=== PATIENT | female | born 1980 | race Caucasian/White ===

== ENCOUNTER 2022-05-12 14:23 | Emergency (ER) | payer BC, MEDICAID ==
[2022-05-12] MEDS ORDERED: Sodium Chloride 0.9% 10 ML Syringe FLUSH PRN (14:35)
[2022-05-12] MEDS ORDERED: Ondansetron 4 MG/2 ML SDV IVPUSH ONE (14:35)
[2022-05-12] MEDS ORDERED: Ketorolac 30 MG/ML SDV IVPUSH ONE (14:35)
[2022-05-12] MEDS ORDERED: Sodium Chloride 0.9% 1,000 ML IV SCH (14:45)
[2022-05-12 15:13] LABS: ESTIMATED GFR 95 mL/min (>60)
[2022-05-12] MEDS ORDERED: Vancomycin 125 MG Cap PO ONE (17:16)
== END 2022-05-12 17:55 | disposition home or self-care (01) ==
LOC: FB.ED 14:23
DX: A04.72 Enterocolitis due to Clostridium difficile, not specified as recurrent (principal); F17.210 Nicotine dependence, cigarettes, uncomplicated
CPT/HCPCS: 36415; 74176; 80053; 85025; 86140; 87230; 96361; 96374; 96375; 99284; A9270; J1885; J2405; J7030